=== PATIENT | male | born 1970 | race Caucasian/White ===

== ENCOUNTER 2016-08-17 01:07 | Observation (INO) | payer BC ==
[~2016-08-17] VITALS: Ht 180.3 cm; Wt 81.0 kg
[2016-08-17 01:53] LABS: BASO # 0.1 K/mm3 (0.0-0.2); BASO % 0.5 % (0.0-1.0); EOS % 0.2 % (0.0-3.0); LARGE UNSTAINED CELL # 0.1 K/mm3 (0.0-0.4); LYMPH # 2.5 K/mm3 (1.5-4.5); LYMPH % 17.6 % (24.0-44.0); MEAN CORPUSCULAR HEMOGLOBIN 29.7 pg (27.0-33.0); MEAN CORPUSCULAR HGB CONC 33.7 g/dl (32.0-36.5); MEAN CORPUSCULAR VOLUME 87.9 fl (80.0-96.0); MONO % 7.9 % (0.0-5.0); NEUTROPHILS # 9.6 K/mm3 (1.8-7.7); NEUTROPHILS % 72.8 % (36.0-66.0); PLATELET COUNT, AUTOMATED 208 k/mm3 (150-450); RED CELL DISTRIBUTION WIDTH 13.4 % (11.5-14.5); WHITE BLOOD COUNT 13.2 K/mm3 (4.0-10.0)
[2016-08-17 02:14] LABS: ALBUMIN 4.2 GM/DL (3.2-5.2); ALBUMIN/GLOBULIN RATIO 1.27 (1.00-1.93); ALKALINE PHOSPHATASE 93 U/L (45-117); ALT/SGPT 56 U/L (12-78); ANION GAP 15 MEQ/L (8-16); AST/SGOT 141 U/L (15-37); BILIRUBIN,DIRECT 0.4 MG/DL (0.0-0.2); BILIRUBIN,TOTAL 1.5 MG/DL (0.2-1.0); BLOOD UREA NITROGEN 32 MG/DL (7-18); CALCIUM LEVEL 9.1 MG/DL (8.5-10.1); CARBON DIOXIDE LEVEL 22 MEQ/L (21-32); CHLORIDE LEVEL 98 MEQ/L (98-107); CREATININE FOR GFR 2.01 MG/DL (0.70-1.30); GLOMERULAR FILTRATION RATE 38.6 (>60); GLUCOSE, FASTING 85 MG/DL (70-105); POTASSIUM SERUM 3.7 MEQ/L (3.5-5.1); SODIUM LEVEL 135 MEQ/L (136-145); TOTAL PROTEIN 7.5 GM/DL (6.4-8.2)
[2016-08-17 02:21] LABS: METHADONE URINE NEGATIVE (NEGATIVE)
[2016-08-17] MEDS ORDERED: NS 1,000 ML IV ONE ×2 (02:45)
[2016-08-17 07:41] LABS: ANION GAP 11 MEQ/L (8-16); BLOOD UREA NITROGEN 27 MG/DL (7-18); CALCIUM LEVEL 8.2 MG/DL (8.5-10.1); CARBON DIOXIDE LEVEL 22 MEQ/L (21-32); CHLORIDE LEVEL 107 MEQ/L (98-107); CREATININE FOR GFR 1.27 MG/DL (0.70-1.30); GLOMERULAR FILTRATION RATE > 60.0 (>60); GLUCOSE, FASTING 85 MG/DL (70-105); POTASSIUM SERUM 3.6 MEQ/L (3.5-5.1); SODIUM LEVEL 140 MEQ/L (136-145)
[2016-08-17] MEDS ORDERED: ONDANSETRON 4MG/2ML VIAL (J2405) IV PRN (08:30)
[2016-08-17] MEDS ORDERED: ACETAMINOPHEN TAB 650MG DOSE (2X325MG) PO PRN (08:30)
[2016-08-17] MEDS ORDERED: NICOTINE 21MG/24HR 1 EA TRANSDERMAL TD ONE (08:30)
[2016-08-17] MEDS ORDERED: ALPR1TAB3 PO (08:46)
[2016-08-17] MEDS ORDERED: ODEF1TAB PO (08:46)
[2016-08-17] MEDS ORDERED: VARE1TA PO (08:46)
[2016-08-17] MEDS ORDERED: ATOR1TAB19 PO (08:46)
[2016-08-17] MEDS ORDERED: VYVA60CA PO (08:46)
[2016-08-17 08:55] LABS: FREE T4 1.31 NG/DL (0.76-1.46)
[2016-08-17 10:14] VITALS: BP 122/64
[2016-08-17] MEDS: NS 1,000 ML IV SCH ×2 (11:11→16:35)
[2016-08-17] MEDS: ENOXAPARIN 40 MG/0.4 ML SYRINGE (J1650) SC SCH (11:11)
--- NOTE | 2016-08-17 12:03 | HPE ---
DATE OF ADMISSION: 08/17/2016 PRIMARY CARE PROVIDER: Unknown. CHIEF COMPLAINT: Exhaustion. SUMMARY OF PRESENTATION: This is a 45-year-old with HIV diagnosed in 2006 on antiretroviral therapy, who is visiting the area for the past few days and has been over using amphetamines. He came to the hospital today as he has been up for several days, he is dehydrated. He has been seeing things that he knows are not there. In the emergency department, he was found to have rhabdomyolysis, and I was called for admission. The patient is a generally poor historian. 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 He does not complain of any pain. No chest pain. He is not short of breath. He is not nauseous. He has had no vomiting. He describes no past surgical history. PAST MEDICAL HISTORY: Notable for: 1. HIV. 2. History of two previous psychiatric admissions, one in [place] and one in [place] associated with what sounds like hallucinations. ALLERGIES: He has no known drug allergies. MEDICATIONS AT HOME: Being obtained. He is on a medication for HIV. He takes: - aspirin - multivitamin - zinc Some other medications that have yet to be discovered. FAMILY HISTORY: Notable for a mother who is 84, alive and well. Father 79, who with heart disease. SOCIAL HISTORY: He smokes cigarettes. He occasionally uses marijuana. He is from [place]. He is visiting this area apparently to meet someone. REVIEW OF SYSTEMS: Notable for no headache. No visual changes. No runny nose. No sore throat. No cough. No shortness of breath. No orthopnea. No abdominal pain. No change in bowel or bladder habits. No nausea. No focal weakness or paresthesias. Otherwise, unremarkable, although again it does seem somewhat limited. Temperature is 98.8, pulse 84, respiratory rate 20, blood pressure is currently 96/57, 94% on room air. Input and output notable for positive fluid balance of 650. Weight is 81 kg. Awakened with difficulty. Needs to be reoriented. During the discussion, he tends to drift off to sleep. Head is normocephalic. Sinuses are nontender. Pupils are round and reactive to light. They appear symmetrical. Nasal septum is midline. Mucous membranes are tacky. Neck is supple. Breathing is symmetrical and rested. I:E ratio is 1:3. No wheezes, rales or rhonchi. Heart has a regular rate and rhythm. It is not tachycardic. Radial pulses are 2+. Capillary refill is less than 2 seconds. Abdomen is soft, hypoactive bowel sounds. Nontender. No lower extremity edema. He is moving all four extremities. Facies are symmetrical. White cell count is 13.2, hemoglobin 15.4, and platelets of 208. Sodium 140, BUN 27, creatinine 1.27, CK 2148. Toxicology screen is positive for amphetamines. 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 PLAN: 1. Rhabdomyolysis. The patient will receive IV fluids and will be monitored for decreasing CK and renal function. 2. The patient has metabolic encephalopathy. He is somewhat somnolent, may be recovering from his binge on amphetamines. He has described periods of hallucinations. Denies active suicidal or homicidal ideation, but has had previous psychiatric admissions related to hallucinations. At this point, it would be arce to have a sitter. 3. The patient has HIV. We will continue his outpatient medications. 4. The patient will have a nicotine patch available to him for cessation. 5. Deep vein thrombosis (DVT) prophylaxis has been ordered. APOLLOD
[2016-08-17 14:00] VITALS: BP 111/58
[2016-08-17 22:00] VITALS: BP 102/60
[2016-08-18] MEDS: NS 1,000 ML IV SCH ×2 (02:06→07:57)
[2016-08-18 06:00] VITALS: BP 98/62
[2016-08-18 06:56] LABS: MEAN CORPUSCULAR HEMOGLOBIN 29.7 pg (27.0-33.0); MEAN CORPUSCULAR HGB CONC 33.1 g/dl (32.0-36.5); MEAN CORPUSCULAR VOLUME 89.9 fl (80.0-96.0); RED CELL DISTRIBUTION WIDTH 13.4 % (11.5-14.5); WHITE BLOOD COUNT 6.8 K/mm3 (4.0-10.0)
[2016-08-18 07:06] LABS: ALBUMIN 2.5 GM/DL (3.2-5.2); ALBUMIN/GLOBULIN RATIO 0.93 (1.00-1.93); ALKALINE PHOSPHATASE 63 U/L (45-117); ALT/SGPT 35 U/L (12-78); ANION GAP 8 MEQ/L (8-16); AST/SGOT 49 U/L (15-37); BILIRUBIN,TOTAL 0.5 MG/DL (0.2-1.0); BLOOD UREA NITROGEN 9 MG/DL (7-18); CALCIUM LEVEL 7.9 MG/DL (8.5-10.1); CARBON DIOXIDE LEVEL 26 MEQ/L (21-32); CHLORIDE LEVEL 111 MEQ/L (98-107); CREATININE FOR GFR 0.79 MG/DL (0.70-1.30); GLOMERULAR FILTRATION RATE > 60.0 (>60); GLUCOSE, FASTING 101 MG/DL (70-105); POTASSIUM SERUM 3.6 MEQ/L (3.5-5.1); SODIUM LEVEL 145 MEQ/L (136-145); TOTAL PROTEIN 5.2 GM/DL (6.4-8.2)
--- NOTE | 2016-08-18 07:20 | ECGEPIP ---
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
[2016-08-18] MEDS: ENOXAPARIN 40 MG/0.4 ML SYRINGE (J1650) SC SCH (09:00)
--- NOTE | 2016-08-18 16:09 | IPN ---
DATE: 08/18/2016 Mr. Paulson is feeling well today. He has no complaints of pain, chest pain, shortness of breath. He is passing urine. Tolerating a diet. No aches or pains. He is not hearing or seeing things that are not actually in the room. He denies depression or suicidal ideation. Temperature is 98.2, pulse 69, respiratory rate 16, blood pressure 98/62, 96% on room air. Input and output notable for a positive fluid balance of 5755. No bowel movements during his stay. Body Mass Index (BMI) is 24.9. He is awake, appropriately interactive, pleasantly conversant. Normal mood and affect. Mucous membranes are moist. Neck is supple. Breathing is symmetrical and rested. I:E ratio is 1:3. No wheezes, rales or rhonchi. HEART: Regular rate and rhythm. White cell count is 6.8, hemoglobin 12.3, platelets 168, BUN is 9, creatinine 0.79, CK is 615. ASSESSMENT: This is a 45-year-old who, after a bout of using amphetamines, presented with metabolic encephalopathy and rhabdomyolysis. PLAN: 1. Rhabdomyolysis. CK has dropped to a reasonable level. No longer needs IV fluids. He has no focal paresthesias or pain. 2. The patient has metabolic encephalopathy, resolved. We did have him on a sitter during his stay. There is no evidence of ongoing depression, suicidal or homicidal ideation. At this point, he appears back to his baseline. 3. The patient had amphetamine overuse. We did discuss the possibility of referral for inpatient rehabilitation, should that become available. He has declined, and he follows with a rehabilitation counselor, whom he is supposed to see today, but he will continue to followup as an outpatient. 4. The patient has HIV. We will continue his home medications. 5. The patient will be discharged today. Please see discharge instructions for specific guidance.
== END 2016-08-18 14:05 | disposition home or self-care (01) ==
LOC: M ED 08:30 → M ED INP 08:31 → M MSPAV 10:14
PROVIDERS: ADMIT Internal Medicine; ATTEND Internal Medicine
DX: M62.82 Rhabdomyolysis (principal); G93.41 Metabolic encephalopathy; F15.10 Other stimulant abuse, uncomplicated; B20 Human immunodeficiency virus [HIV] disease; F17.210 Nicotine dependence, cigarettes, uncomplicated; Z79.82 Long term (current) use of aspirin; Z79.899 Other long term (current) drug therapy
CPT/HCPCS: 36415; 80048; 80053; 80076; 80306; 82550; 84439; 84443; 85025; 85027; 93005; 93041; 94760; 99285; G0480; J1650